=== PATIENT | male | born 2000 | race African-American/Black ===

== ENCOUNTER 2021-12-16 00:03 | Observation (INO) | payer OTHER, SELFPAY ==
[2021-12-16] MEDS ORDERED: Ondansetron ODT 8 MG TAB ONE (00:25)
[2021-12-16] MEDS ORDERED: Dicyclomine 20 MG TAB ONE (00:25)
[2021-12-16] MEDS ORDERED: Dicyclomine 20 MG/2 ML VIAL ONE ×2 (00:34→00:35)
[2021-12-16] MEDS ORDERED: Mag-Al 1200 mg/1200 mg/30 ML UDCUP ONE (00:34)
[2021-12-16] MEDS ORDERED: Lidocaine Viscous Sol 2% 15 ml UD Cup ONE (00:34)
[2021-12-16] MEDS ORDERED: Morphine 4 MG/ML VIAL ONE (01:52)
[2021-12-16 01:54] LABS: #Basophils 0.1 thou/uL (0.0-0.2); #Eosinphils 0.1 thou/uL (0.0-0.7); #Lymphocytes 2.1 thou/uL (1.20-3.40); #Monocytes 0.7 thou/uL (0.11-0.59); #Neutrophils 2.9 thou/uL (1.40-6.50); %Basophils 1.8 % (0.0-1.0); %Monocytes 11.3 % (0.0-4.0); %Neutrophils 48.9 % (31.0-61.0); Hemoglobin 14.9 g/dL (14.0-18.0); Mean Corpuscular HGB CONC 33.8 g/dL (32.0-36.0); Mean Corpuscular Volume 94.5 fL (78.0-98.0); Mean Platelet Volume 7.7 fL (7.4-10.4); Platelet Count 169 thou/uL (130-400); RBC Distribution Width 12.3 % (11.5-14.5); Red Blood Cell (RBC) Count 4.64 mill/uL (4.00-5.20); White Blood Cell (WBC) Count 5.9 thou/uL (4.8-10.8)
[2021-12-16 02:12] LABS: Bilirubin Negative (Negative); Blood, Urine Negative (Negative); Clarity Clear (Clear); Glucose, Urine (Dipstick) Normal (Negative); Ketone, Urine Negative (Negative); Leukocyte Negative Leu/uL (Negative); Nitrite Negative (Negative); Protein, Urine (Dipstick) 20 mg/dL (Neg-Trace); Specific Gravity, Urine 1.032 (1.002-1.036); pH, Urine 6.5 (5.0-9.0)
[2021-12-16 02:15] LABS: ALT (SGPT) 17 U/L (8-55); AST (SGOT) 20 U/L (5-34); Alkaline Phosphatase 35 U/L (50-130); Anion Gap 14 mmol/L (10-20); BUN (Urea Nitrogen) 9 mg/dL (8.9-20.6); Bilirubin, Total 0.6 mg/dL (0.2-1.2); Calc. Creatinine Clearance 0 mL/min (70-130); Carbon Dioxide 25 mmol/L (22-29); Chloride 101 mmol/L (98-107); Globulin 3.8 g/dL (2.4-3.5); Glucose 151 mg/dL (70-105); Lipase 7 U/L (8-78); Potassium 3.8 mmol/L (3.5-5.1); Protein, Total 7.8 g/dL (6.0-8.3); Sodium 136 mmol/L (136-145)
[2021-12-16] MEDS ORDERED: Levofloxacin 500 mg/D5W 100 ml Premix Bag ONE (03:57)
[2021-12-16] MEDS ORDERED: Lidocaine 2% Viscous Solution 10 ML, Aluminum & Magnesium Hydroxide 30 ML SSW SCH (04:15)
[2021-12-16] MEDS ORDERED: metroNIDAZOLE 500 MG in Premix Bag 1 BAG IVPB SCH ×2 (04:15→13:00)
[2021-12-16 05:59] VITALS: BMI 28.7
[2021-12-16 06:22] LABS: SARS-CoV-2 NAA Rapid Test Not Detected (NotDetected)
[2021-12-16] MEDS ORDERED: Ondansetron PF 4 MG/2 ML Vial IVP PRN (06:32)
[2021-12-16] MEDS ORDERED: Morphine 2 MG/ML VIAL SLOW IVP PRN (06:33)
[2021-12-16] MEDS ORDERED: Dextrose 5 % And 0.9 % NaCl 1,000 ML IV SCH (06:45)
[2021-12-16] MEDS ORDERED: Iopamidol-370 76% 500 ML 1 ML ONE (09:41)
[2021-12-16 11:56] VITALS: BP 137/66; TEMP 98.5
== END 2021-12-16 13:56 | disposition short-term general hospital (02) ==
LOC: ERS 00:03 → SURG A 04:36 → INTOOBSV 04:36
PROVIDERS: ADMIT Specialist; ATTEND Specialist
DX: K35.80 Unspecified acute appendicitis (principal); K76.0 Fatty (change of) liver, not elsewhere classified; Z88.0 Allergy status to penicillin; Z88.6 Allergy status to analgesic agent; Z20.822 Contact with and (suspected) exposure to COVID-19
CPT/HCPCS: 74177; 80053; 81003; 83690; 85025; 96365; 96367; 96372; 96375; J0500; J1956; J2270; J7042; Q0162; Q9967; U0002